=== PATIENT | male | born 1995 | race Hispanic/Latino ===

== ENCOUNTER 2019-08-07 02:33 | Emergency (ER) | payer BC ==
[2019-08-07] MEDS ORDERED: ONDANSETRON ODT 4 MG TAB ONE (03:18)
[2019-08-07] MEDS ORDERED: ACETAMINOPHEN EXTRA STRENGTH 500 MG TABLET ONE (03:18)
[2019-08-07] MEDS ORDERED: METOCLOPRAMIDE 10 MG/2 ML VIAL ONE (03:36)
[2019-08-07] MEDS ORDERED: DiphenhydrAMINE HCL 50 MG/ML VIAL ONE (03:36)
[2019-08-07] MEDS ORDERED: KETOROLAC TROMETHAMINE 30MG/ML ONE (03:37)
[2019-08-07 04:01] LABS: BASOPHILS % (AUTO) 0.4 % (0.0-5.0); EOSINOPHILS % (AUTO) 1.3 % (0.0-8.0); HEMATOCRIT 46.9 % (42-54); LYMPHOCYTES % (AUTO) 33.5 % (21.0-51.0); MEAN CORPUSCULAR HEMOGLOBIN 28.6 pg (27.0-33.0); MEAN CORPUSCULAR HGB CONC 33.5 g/dL (32.0-36.0); MEAN CORPUSCULAR VOLUME 85.4 fL (79-99); MONOCYTES % (AUTO) 8.5 % (3.0-13.0); NEUTROPHILS % (AUTO) 55.8 % (40.0-77.0); PLATELET COUNT (AUTO) 173 K/uL (130-400); RED BLOOD CELL COUNT(AUTO) 5.49 MIL/uL (4.50-6.20); RED CELL DISTRIBUTION WIDTH 12.7 % (11.0-15.5); WHITE BLOOD COUNT (AUTO) 7.6 K/uL (4.8-10.8)
[2019-08-07 04:14] LABS: CREATININE 1.1 mg/dL (0.5-1.5)
== END 2019-08-07 05:40 | disposition home or self-care (01) ==
LOC: EDH 02:33
DX: E86.9 Volume depletion, unspecified (principal); R51 Headache; R11.2 Nausea with vomiting, unspecified; M62.838 Other muscle spasm; Z79.899 Other long term (current) drug therapy
CPT/HCPCS: 36415; 80048; 85025; 87804 ×2; 96361; 96374; 96375; 99284; J1200; J1885; J2765

== ENCOUNTER 2021-02-05 09:03 | Emergency (ER) | payer BC ==
[~2021-02-05] VITALS: Ht 170.2 cm; Wt 90.7 kg
[2021-02-05 09:04] VITALS: BP 138/74
[2021-02-05] MEDS ORDERED: NAPR-1180 PO (09:27)
[2021-02-05] MEDS ORDERED: CIPOTIC AD (09:27)
== END 2021-02-05 09:50 | disposition home or self-care (01) ==
LOC: EDH 09:03
DX: S09.22XA Traumatic rupture of left ear drum, initial encounter (principal); W22.8XXA Striking against or struck by other objects, initial encounter; Y93.89 Activity, other specified; Y92.89 Other specified places as the place of occurrence of the external cause; Y99.8 Other external cause status
CPT/HCPCS: 99282

== ENCOUNTER 2022-11-19 09:04 | Emergency (ER) | payer BC, OTHER ==
[~2022-11-19] VITALS: Ht 170.2 cm; Wt 90.7 kg
[~2022-11-19 09:04] MED LIST: CIPOTIC AD; NAPR-1180 PO
[2022-11-19 09:06] VITALS: BP 129/76
[2022-11-19] MEDS ORDERED: ONDA4TAB10 PO (10:22)
[2022-11-19] MEDS ORDERED: ACET-66 PO (10:22)
== END 2022-11-19 11:04 | disposition home or self-care (01) ==
LOC: EDH 09:04
DX: B34.9 Viral infection, unspecified (principal); A08.4 Viral intestinal infection, unspecified; Z79.899 Other long term (current) drug therapy; Z20.822 Contact with and (suspected) exposure to COVID-19
CPT/HCPCS: 99283; 87635; 87880; 87804 ×2; C9803